=== PATIENT | female | born 1990 | race Caucasian/White ===

== ENCOUNTER 2016-07-14 11:03 | Emergency (ER) | payer BC ==
[~2016-07-14] VITALS: Ht 170.2 cm; Wt 86.2 kg
[~2016-07-14 11:03] MED LIST: ACETAMINOPHEN325 M1 PO; AFEDITAB CR30 MG PO; BACTRIM DS TAB1 EACH PO; BIRTH CONTROL; FOLIC ACID 1 MG1 MG GT; HYDROCORTISONE30 G9 RE; IBUPROFEN 600600 M1 PO; IBUPROFEN 800800 MG PO; KEFLEX500 MG PO; LABETALOL HCL200 MG PO; LANOLIN56 GM; MACROBID 100 M100 M1 PO; MEDROLDOSEPACK PO; MUPIROCIN22 GM NS; NAPROSYN500 MG PO; NEURONTIN 300300 M1 PO; NOHOMEMEDICATIONS; NORCO 5-325 TA1 EACH PO; ONDANSETRON HCL4 M2 PO; PRENATAL; PRENATAL TABLE1 EAC4 PO; TRINATE TABLET1 TAB PO; ZOFRAN ODT4 MG PO
[2016-07-14] MEDS ORDERED: IBUPROFEN 200200 M1 PO (11:27)
[2016-07-14] MEDS ORDERED: ALLERCLEAR10 MG PO (11:27)
[2016-07-14 11:50] LABS: HEMATOCRIT 43.8 % (37.0-47.0); HEMOGLOBIN 15.2 gm/dL (12.0-15.0); MCH 29.6 pg (26.0-34.0); MCHC 34.6 g/dL (28.0-37.0); MCV 85.5 fL (80.0-100.0); RBC 5.12 mil/uL (4.20-5.00); RDW 12.5 % (10.5-14.5); WBC 6.8 thou/uL (4.0-11.0)
[2016-07-14 14:38] VITALS: BP 118/78
== END 2016-07-14 14:39 | disposition home or self-care (01) ==
LOC: ER 11:03
PROVIDERS: Emergency Medicine
DX: G43.909 Migraine, unspecified, not intractable, without status migrainosus (principal); Z90.89 Acquired absence of other organs; J45.909 Unspecified asthma, uncomplicated; Z91.040 Latex allergy status

== ENCOUNTER 2017-01-22 17:21 | Emergency (ER) | payer BC ==
[~2017-01-22] VITALS: Ht 170.2 cm; Wt 86.2 kg
[~2017-01-22 17:21] MED LIST changes: +ALLERCLEAR10 MG PO; +IBUPROFEN 200200 M1 PO
[2017-01-22 18:37] LABS: ABSOLUTE NEUTROPHILS 7.3 thou/uL (1.4-8.2); BASOPHILS 0.3 % (0.0-2.0); EOSINOPHILS 2.1 % (0.0-3.0); HEMATOCRIT 40.5 % (37.0-47.0); HEMOGLOBIN 13.8 gm/dL (12.0-15.0); LYMPHOCYTES 16.1 % (24.0-44.0); MCHC 34.1 g/dL (28.0-37.0); MONOCYTES 6.3 % (1.0-8.0); PLATELET COUNT 212 thou/uL (150-400); POLYS 75.2 % (36.0-66.0); RDW 12.3 % (10.5-14.5); WBC 9.7 thou/uL (4.0-11.0)
[2017-01-22 18:43] LABS: CALCIUM 8.8 mg/dL (8.5-10.1); POTASSIUM 3.6 mmol/L (3.5-5.1)
[2017-01-22 18:50] LABS: MANUAL DIFF NO
[2017-01-22] MEDS ORDERED: IBUPROFEN 600600 M1 PO (22:13)
[2017-01-22] MEDS ORDERED: NORCO 5-325 TA1 EACH PO (22:13)
[2017-01-22 22:25] VITALS: BP 137/78
== END 2017-01-22 22:27 | disposition home or self-care (01) ==
LOC: ER 17:21
PROVIDERS: Nurse Practitioner Family
DX: L02.214 Cutaneous abscess of groin (principal); F41.9 Anxiety disorder, unspecified; J45.909 Unspecified asthma, uncomplicated; F10.99 Alcohol use, unspecified with unspecified alcohol-induced disorder; Z90.89 Acquired absence of other organs; Z90.49 Acquired absence of other specified parts of digestive tract; Z91.040 Latex allergy status